=== PATIENT | male | born 1960 | race Caucasian/White ===

== ENCOUNTER → 2016-08-08 | Outpatient (CLI) | payer OTHER | LOC: MMPC 10:00 | PROVIDERS: ATTEND Podiatrist Foot & Ankle Surgery | DX: L60.9 Nail disorder, unspecified (principal); I73.9 Peripheral vascular disease, unspecified; E66.9 Obesity, unspecified; F17.210 Nicotine dependence, cigarettes, uncomplicated | CPT/HCPCS: 11719 ×2; G0463 ==

== ENCOUNTER → 2016-08-26 | Outpatient (CLI) | payer OTHER ==
--- NOTE | 2016-08-26 17:16 | DI ---
VENOUS DOPPLER ULTRASOUND OF THE RIGHT LOWER EXTREMITY, 08/26/2016 3:53 PM: Clinical History: Right calf pain. Previous Exam: None. Technique: 2D real-time imaging is supplemented with color Doppler ultrasound. Compression and augmen tation maneuvers were performed. The deep venous system from the groin to the popliteal fossa is norm al. The greater saphenous vein is normal. Reading: Negative venous Doppler ultrasound of the right lower extremity.
--- NOTE | 2016-08-26 17:19 | DI ---
RIGHT ANKLE, 08/26/2016 3:29 PM: Clinical History: Injury of the right ankle and foot. Previous Exam: None at this facility. 3 views are submitted. There is edema of the subcutaneous tissues of the lower leg and ankle region. No acute fracture or dislocation is present. There are bony densities at the tip of the medial malleo mark anthony consistent with previous injury to the deltoid ligament. Bony densities also present in the regio n of the talofibular ligaments also related to old injury. Calcifications are present in the distal a spect of the interosseous membrane suggesting previous injury to the syndesmotic ligaments and the in terosseous membrane as well. The ankle mortise is intact. Readin. There is no acute fracture or dislocation. 2. There are bony densities consistent with old injuries to the interosseous membrane, the deltoid l igament, and the fibulotalar ligaments.
== END ==
LOC: RAD 15:49
PROVIDERS: ATTEND Nurse Practitioner Family
DX: S99.921A Unspecified injury of right foot, initial encounter (principal); R60.9 Edema, unspecified
CPT/HCPCS: 73610; 93971

== ENCOUNTER 2016-09-01 15:15 | Emergency (ER) | payer OTHER ==
--- NOTE | 2016-09-01 15:24 | PDOC ---
Lower Extremity Injury HPI - General Chief Complaint: Lower Extremity Problem/Injury Stated Complaint: right lower leg pain Date Seen by Provider: 09/01/16 Time Seen by Provider: 15:18 Source: POSITIVE: Patient, Spouse Exam Limitations: POSITIVE: No limitations Nurse's Notes Reviewed & Considered: Yes - History of Present Illness Initial Comments: Patient comes in today for complaint of right lower extremity pain and swelling. Patient was in [facility] at work when he slipped on the ice and hurt his right lower extremity. This was August 23. He saw his primary care physician on August 26 ultrasound of his right lower extremity x-rays were obtained. Since then he's had increasing pain and increasing swelling increasing difficulty ambulating. He has a history of peripheral vascular disease with femoropopliteal bypass in his left lower extremity. He continues to smoke one to one and a half packs of cigarettes. Addition he has COPD, hypertension, and morbid obesity. He presently has shortness of breath that is chronic in nature, no chest pain, no abdominal pain, no nausea vomiting or diarrhea. No fever or chills or sweats. Have you received a tetanus shot in the past 10 years?: Yes Body Location Affected: REPORTS: Lower Extremity (R) Timing: REPORTS: Abrupt Duration: >1 week Severity: Severe Quality: REPORTS: Aching, "Pain", Sharpness, Throbbing Location at Time of Onset: REPORTS: Work Context of Injury: REPORTS: Fall Location of Injury: REPORTS: Leg (R) Modifying Factors: improves with: Walking, Movement, Nothing Relieves Any Prior Injuries Related to Current Complaint?: No - Patient Home Medications Home Medications: Home Medications Albuterol Sulfate 1 each NEB Q4-6H #1 box 02/23/13 Potassium Chloride 1 cap PO QD #90 cap 02/23/13 Lisinopril 1 tab PO DAILY #90 tab 09/15/15 Fluoxetine HCl [Prozac] 1 cap PO DAILY #90 cap 12/27/15 Furosemide [Lasix] 20 mg PO BID #60 tab 12/27/15 Metoprolol Tartrate 1 tab PO BID #90 tab 12/27/15 Pantoprazole Sodium [Protonix] 1 tab ORAL QD #90 tab 12/27/15 Warfarin Sodium 10 mg PO DAILY #90 tab 04/26/16 Simvastatin 1 tab PO DAILY #90 tab 06/03/16 Fluticasone/Salmeterol [Advair 500-50 Diskus] Sample #2 08/15/16 Tiotropium [facility] [Spiriva Respimat] Sample #2 08/15/16 Hydrocodone/Acetaminophen [Hydrocodon-Acetaminoph 7.5-325] 1 tab PO Q4-6H #30 tab 08/30/16 - Patient Allergies Allergies/Adverse Reactions: Allergies Allergy/AdvReac Type Severity Reaction Status Date / Time No Known Drug Allergies Allergy NOT Verified 09/01/16 15:18 APPLICABLE Past Medical History - heen HEENT History: Denies History Cardiovascular History: Hypertension, Other (please comment) Additional Cardiovasular History: tachycardia Respiratory History: COPD, Sleep Apnea, Home Oxygen Use, Home CPAP Use, Pulmonary Embolism Additional Respiratory History: 3LPM N/C AT NIGHT AND CPAP. 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 Neurological History: Denies History Blood Disorders: Denies History Psychiatric History: Depression Cancer History: Denies History Alcohol Use: None Substance Use Type: None ROS - Limitations ROS Limitations: No Limitations Constitution: REPORTS: Denies Symptoms Cardiovascular: REPORTS: Denies Cardiac Symptoms Respiratory: REPORTS: Shortness Of Breath Neurological: REPORTS: Denies Neuro Symptoms Gastrointestinal: REPORTS: Denies GI Symptoms Endocrine: REPORTS: Denies Symptoms Musculoskeletal: REPORTS: Calf Pain, Lower Extremity Swelling Genitourinary: REPORTS: Denies Symptoms Eyes: REPORTS: Denies Symptoms ENT: REPORTS: Denies Symptoms Skin: REPORTS: Denies Skin Symptoms Lympathic: REPORTS: Denies Lympathic Symptoms Immunologic: POSITIVE: Denies Symptoms Psychiatric: POSITIVE: Denies Psych Symptoms Lower Ext Complaint Exam - General Appearance General Appearance: POSITIVE: Alert, Cooperative, No Evidence of Trauma, Moderate Distress - Extremities Lower Extremity: POSITIVE: Normal Temperature, Skin Intact, No Evidence of Ischemia, Soft Tissue Tenderness (Positive Homans sign right calf), Swelling Gait: POSITIVE: Limited by Pain Neurovascular/Tendon: POSITIVE: Sensation Normal, Motor Normal, No Vascular Compromise Skin: POSITIVE: Warm, Dry, Other (Multiple small skin lesions that appear to be infected follicles. These are scattered over his abdomen and torso.) - HEENT HEENT: POSITIVE: Head Inspection Nml, Eyes Inspection Nml, Ears Inspection Nml, Nose Inspection Nml, PERRL, EOMI - Neck / Back Neck/Back: POSITIVE: Normal Inspection, Non-Tender - Respiratory / CVS Respiratory / CVS: POSITIVE: Chest Non Tender, No Ecchymosis, Breath Sounds Normal, No Respiratory Distress, Heart Sounds Normal, Regular Rate/Rhythm Peripheral Pulses: Dorsalis-pedis (R): 1+, Dorsalis-pedis (L): 1+ - Abdomen Abdomen: Soft: (All Quadrants), Normal Bowel Sounds: (All Quadrants), Denies Tenderness: (All Quadrants) Procedures - Laceration/Wound Repair Did patient have a laceration repair: No Lower Ext Complaint Progress - Results Reviewed by me Xrays/CTs/US Reviewed by me: Yes Discussed with Radiologist: Yes Lab Results Reviewed: Yes Lab Results:: Laboratory Results 09/01/16 09/01/16 Range/Units 15:45 16:27 WBC 13.34 H (4.8-10.8) 10^3/uL RBC 5.08 (4.70-6.10) 10^6/uL Hgb 16.5 (14.0-18.0) g/dL Hct 48.7 (42.0-52.0) % MCV 95.9 H (80-90) FL MCH 32.5 H (27-31) PG MCHC 33.9 (33-37) g/dL RDW Std Deviation 50.7 H (39-50) fL RDW Coeff of Scott 14.8 H (11.5-14.5) % Plt Count 271 (140-350) 10*3/uL MPV 11.3 (7.4-12.2) FL Immature Gran % (Auto) 0.3 (0-5) % Neut % (Auto) 79.6 (50-80) % Lymph % (Auto) 11.2 (10-50) % [place] % (Auto) 8.1 (5-15) % Eos % (Auto) 0.4 (0-8) % Baso % (Auto) 0.4 (0-1) % Immature Gran # (Auto) 0.04 10*3/UL Neut # (Auto) 10.62 10*3/UL Lymph # (Auto) 1.49 10*3/uL [place] # (Auto) 1.08 H (0.3-0.8) 10*3/UL Eos # (Auto) 0.06 10*3/UL Baso # (Auto) 0.05 10*3/UL WBC Morphology Comment Normal morphology (NORM) Plt Morphology Comment Normal morphology (NORM) RBC Morph Comment Normal morphology (NORM) PT 32.6 H (9.7-11.4) secs INR 3.09 (0.00-5.90) N/A D-Dimer 0.37 (0.00-0.59) mg/L VBG pH 7.38 (7.32-7.42) VBG pCO2 48 (45-55) mmHg VBG HCO3 28 H (22-26) mmol/L VBG Base Excess 3 H (-2-2) MMOL/L Sodium 136 (135-145) meq/L Potassium 4.4 (3.8-5.2) meq/L Chloride 97 L (98-112) meq/L Carbon Dioxide 27 (23-33) meq/L Anion Gap 12 (5-20) BUN 11 (7-22) mg/dL Creatinine 0.9 (0.70-1.50) mg/dL Estimated GFR > 60 (>60 ml/min/1.73m(2)) BUN/Creatinine Ratio 12.22 (6-20) Glucose 104 (78-110) mg/dL Calculated Osmolality 280.0 (267-292) mOsm/kg Lactic Acid 2.5 H (0.70-2.10) MMOL/L Calcium 9.2 (8.7-10.7) mg/dL Magnesium 1.9 (1.6-2.4) mg/dL Total Bilirubin 1.1 (0.3-1.2) mg/dL AST 43 (21-57) IU/L ALT 43 (21-72) IU/L Alkaline Phosphatase 105 (38-126) IU/L Total Protein 7.9 (6.1-8.0) g/dL Albumin 4.4 (3.5-4.8) g/dL Globulin 3.5 (2.50-4.10) g/dL Albumin/Globulin Ratio 1.20 L (1.3-2.0) mg/g - Patient's Progress Pain Medication Addressed: POSITIVE: Yes Re-Examine Time:: 17:12 Status: POSITIVE: Improved MDM / ED Course: Patient was examined, IV started and blood drawn and sent to the lab for studies , ultrasound of his left lower extremity were obtained. Ankle brachial index was done by me and shows a blood pressure of 40 in the posterior tibial artery versus a brachial pressure of 160. This results in an JOSE ALEJANDRO of 0.25. Findings: INR was 3.09, CBC reveals a white count of 13.34. Ultrasound shows no DVT present. Assessment: Ischemic pain related to peripheral vascular disease in the face of continued smoking. Plan: Follow-up tomorrow with Dr. Keith Isaac, vascular surgeon in [facility]. He is receiving a Lovenox injection here to prevent complete loss of blood flow to his foot. He receives a prescription for [place], and instructions to follow-up with Dr. Isaac in a fasting state. - Consult Counseled: POSITIVE: Patient, Family, RE: Lab Results, RE: Radiology Results, RE : DX, RE: Need for F/U Patient Care Time - Estimated PCT Patient Care Time (In Minutes): 45 Vital Signs - Recent Vital Signs Vital Signs: Vital Signs (Last 8 hours) Temp Pulse Resp BP Pulse Ox 09/01/16 15:23 98.6 F 93 22 132/58 93 - VS Reviewed Vital Signs Reviewed: Yes Discharge Clinical Impression: Ischemic pain of foot at rest Discharge Disposition: Discharged to Home Condition: Stable Patient Instructions Given at Discharge: Peripheral Vascular Disease (ED)
[2016-09-01 15:33] VITALS: RESP 22; TEMP 98.6
[2016-09-01] MEDS ORDERED: ONDANSETRON 4 MG/2 ML VIAL IVP ONE (15:37)
[2016-09-01] MEDS ORDERED: MORPHINE SULFATE 4 MG/1 ML IVP ONE (15:37)
[2016-09-01] MEDS ORDERED: Sodium Chloride 0.9% 1,000 ML PRIMARY IV ONE (15:37)
[2016-09-01 16:06] LABS: BASOPHILS # (AUTO) 0.05 10*3/UL; BASOPHILS % (AUTO) 0.4 % (0-1); EOSINOPHILS % (AUTO) 0.4 % (0-8); HEMATOCRIT 48.7 % (42.0-52.0); HEMOGLOBIN 16.5 g/dL (14.0-18.0); IMM GRAN % (AUTO) 0.3 % (0-5); IMM GRAN# (AUTO) 0.04 10*3/UL; LYMPHOCYTES # (AUTO) 1.49 10*3/uL; LYMPHOCYTES % (AUTO) 11.2 % (10-50); MEAN CORPUSCULAR HEMOGLOBIN 32.5 PG (27-31); MEAN CORPUSCULAR HGB CONC 33.9 g/dL (33-37); MEAN PLATELET VOLUME 11.3 FL (7.4-12.2); MONOCYTES # (AUTO) 1.08 10*3/UL (0.3-0.8); MONOCYTES % (AUTO) 8.1 % (5-15); NEUTROPHILS # (AUTO) 10.62 10*3/UL; NEUTROPHILS % (AUTO) 79.6 % (50-80); RDW COEFFICIENT OF VARIATION 14.8 % (11.5-14.5); RED BLOOD COUNT 5.08 10^6/uL (4.70-6.10); WHITE BLOOD COUNT 13.34 10^3/uL (4.8-10.8)
[2016-09-01 16:22] LABS: ASPARTATE AMINO TRANSFERASE 43 IU/L (21-57); BILIRUBIN,TOTAL 1.1 mg/dL (0.3-1.2); BLOOD UREA NITROGEN 11 mg/dL (7-22); BUN/CREATININE RATIO 12.22 (6-20); CALCIUM 9.2 mg/dL (8.7-10.7); CHLORIDE 97 meq/L (98-112); CREATININE 0.9 mg/dL (0.70-1.50); EST GLOMERULAR FILTRATION > 60 (>60 ml/min/1.73m(2)); GLUCOSE 104 mg/dL (78-110); LACTATE 2.5 MMOL/L (0.70-2.10); MAGNESIUM 1.9 mg/dL (1.6-2.4); POTASSIUM 4.4 meq/L (3.8-5.2); SODIUM 136 meq/L (135-145); TOTAL PROTEIN 7.9 g/dL (6.1-8.0)
[2016-09-01 16:26] LABS: PLATELET MORPHOLOGY COMMENT NORMAL MORPHOLOGY (NORM)
[2016-09-01 16:41] LABS: PROTHROMBIN TIME 32.6 secs (9.7-11.4)
[2016-09-01] MEDS ORDERED: ENOXAPARIN SODIUM 120 MG/0.8 ML SYRINGE SUBCUT ONE (17:10)
--- NOTE | 2016-09-01 17:30 | DI ---
HISTORY: Right lower extremity swelling. COMPARISON: None available. TECHNIQUE: Sonographic images were obtained through the deep veins of the right lower extremity. FINDINGS: There is normal coaptation. There is no echogenic thrombus. IMPRESSION: 1. No evidence of deep venous thrombosis. NOTE: The interpreting Radiologist was not present at the time of ultrasound interrogation.
== END 2016-09-01 17:40 | disposition home or self-care (01) ==
LOC: ER 15:15
DX: I99.8 Other disorder of circulatory system (principal); I73.9 Peripheral vascular disease, unspecified; R06.02 Shortness of breath; Z72.0 Tobacco use
CPT/HCPCS: 36415 ×2; 80053; 82803; 83605; 83735; 85025; 85379; 85610; 93970; 96372; 96374; 96375; 99283 ×2; J1650; 87040; J2270; J2405; J7030

== ENCOUNTER → 2016-11-13 | Outpatient (CLI) | payer OTHER | LOC: MMPC 10:00 | PROVIDERS: ATTEND Podiatrist Foot & Ankle Surgery | DX: L97.512 Non-pressure chronic ulcer of other part of right foot with fat layer exposed (principal); R60.0 Localized edema; L60.3 Nail dystrophy; I82.401 Acute embolism and thrombosis of unspecified deep veins of right lower extremity | CPT/HCPCS: 99212; G0463 ==

== ENCOUNTER → 2016-12-02 | Outpatient (CLI) | payer OTHER | LOC: MMPC 09:00 | PROVIDERS: ATTEND Family Medicine | DX: L03.115 Cellulitis of right lower limb (principal); I82.491 Acute embolism and thrombosis of other specified deep vein of right lower extremity | CPT/HCPCS: 99214; G0463 ==

== ENCOUNTER → 2017-01-07 | Outpatient (CLI) | payer OTHER ==
[2017-01-07 17:38] LABS: BASOPHILS # (AUTO) 0.07 10*3/UL; BASOPHILS % (AUTO) 0.8 % (0-1); EOSINOPHILS # (AUTO) 0.23 10*3/UL; EOSINOPHILS % (AUTO) 2.8 % (0-8); HEMATOCRIT 41.6 % (42.0-52.0); HEMOGLOBIN 13.5 g/dL (14.0-18.0); LYMPHOCYTES # (AUTO) 2.75 10*3/uL; MEAN CORPUSCULAR HEMOGLOBIN 30.1 PG (27-31); MEAN CORPUSCULAR HGB CONC 32.5 g/dL (33-37); MEAN CORPUSCULAR VOLUME 92.7 FL (80-90); MONOCYTES # (AUTO) 0.75 10*3/UL (0.3-0.8); NEUTROPHILS # (AUTO) 4.52 10*3/UL; NEUTROPHILS % (AUTO) 54.3 % (50-80); PLATELET MORPHOLOGY COMMENT NORMAL MORPHOLOGY (NORM); RBC MORPHOLOGY COMMENT NORMAL MORPHOLOGY (NORM); RED BLOOD COUNT 4.49 10^6/uL (4.70-6.10); WBC MORPHOLOGY COMMENT NORMAL MORPHOLOGY (NORM)
== END ==
LOC: LAB 17:11
PROVIDERS: ATTEND Surgery
DX: I73.89 Other specified peripheral vascular diseases (principal)
CPT/HCPCS: 36415; 82565; 84520; 85025; 85610; 85730

== ENCOUNTER → 2017-02-13 | Outpatient (CLI) | payer OTHER | LOC: MMPC 10:00 | PROVIDERS: ATTEND Podiatrist Foot & Ankle Surgery | DX: L60.3 Nail dystrophy (principal); R60.0 Localized edema | CPT/HCPCS: 11721 ×2; G0463 ==